=== PATIENT | male | born 1980 ===

== ENCOUNTER 2019-06-08 08:45 | Observation (INO) | payer SELFPAY ==
[~2019-06-08] VITALS: Ht 157.5 cm; Wt 78.5 kg
[2019-06-08] MEDS ORDERED: NS IV 500 ML 500 ML IV ONE (09:03)
[2019-06-08] MEDS ORDERED: NS IV 1000 ML 1,000 ML IV SCH (09:03)
[2019-06-08] MEDS ORDERED: KETOROLAC 30 MG/ML VIAL IVP ONE (09:15)
[2019-06-08] MEDS ORDERED: IOHEXOL 350 MG/ML 100 ML (OMNIPAQUE 350) VIAL IV ONE (09:15)
[2019-06-08] MEDS ORDERED: NS 100 ML (IVPB) BAG IV ONE (09:15)
[2019-06-08] MEDS ORDERED: HOLD METFORMIN - RECEIVED CONTRAST 20 ML VIAL IV SCH (09:15)
[2019-06-08] MEDS ORDERED: ONDANSETRON 4 MG/2 ML (SDV) Z0FRAN IVP ONE (09:15)
--- NOTE | 2019-06-08 09:17 | ED Abdominal Pain ---
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 Technical Communicator line was used.) History of Present Illness Date Seen by Provider: Jun 08, 2019 Time Seen by Provider: 08:45 Initial Comments Patient resents to ER by EMS from his work at [employer] with chief complaint that about an hour prior to arrival he had a sudden onset of sharp, severe, debilitating left upper quadrant abdominal pain. For the last 4 days she's been having some off-again on-again nausea without vomiting. He's having nausea now. His work partner who accompanies him states that he did not pass out nor hit his head. He nearly was having severe pain so they sat him down. He had an appointment at 1:15 to see the company doctor however because his symptoms were worsening he could not make it to that appointment so they called EMS. He does have a history of diabetes on metformin and also takes a stomach pill similar to pantoprazole. He's had no abdominal surgeries or trauma. No sore throat fevers or chills. No cough shortness of breath or chest pain. No dysuria or hematuria. No history of kidney stones. Allergies and Home Medications Allergies Coded Allergies: No Known Drug Allergies (Unverified , 06/08/19) Patient Home Medication List Home Medication List Reviewed: Yes Review of Systems Review of Systems Constitutional: No chills, No diaphoresis, No fever, No malaise EENTM: No Blurred Vision, No Double Vision Respiratory: Denies Cough, Denies Orthopnea Cardiovascular: Denies Chest Pain, Denies Edema Gastrointestinal: See HPI, Abdominal Pain; Denies Constipated, Denies Diarrhea; Nausea; Denies Poor Fluid Intake, Denies Vomiting Genitourinary: Denies Burning, Denies Discharge Musculoskeletal: No back pain, No joint pain Skin: No pruritus, No rash Psychiatric/Neurological: Denies Headache, Denies Numbness All Other Systems Reviewed Negative Unless Noted: Yes Past Cuuxglo-Lzqmbr-Koslfp Hx Patient Social History Alcohol Use: Denies Use Recreational Drug Use: No Smoking Status: Never a Smoker Physical Exam Vital Signs Vital Signs - First Documented 06/08/19 08:45 Temp 36.8 Pulse 93 Resp 18 B/P (MAP) 158/103 (121) Pulse Ox 100 O2 Delivery Room Air Capillary Refill : Height/Weight/BMI Height: '" Weight: lbs. oz. kg; BMI Method: General Appearance: WD/WN, moderate distress HEENT: PERRL/EOMI, pharynx normal Neck: non-tender, full range of motion Respiratory: lungs clear, normal breath sounds, no respiratory distress, no accessory muscle use Cardiovascular: normal peripheral pulses, regular rate, rhythm, no edema Peripheral Pulses: 2+ Radial Pulses (R), 2+ Radial Pulses (L) Gastrointestinal: normal bowel sounds, no organomegaly, tenderness (Tenderness in all 4 quadrants without Rovsing sign or psoas signs but worse in his left upper quadrant without splenomegaly.) Extremities: normal range of motion, non-tender, normal inspection, no pedal edema, normal capillary refill Neurologic/Psychiatric: alert, normal mood/affect, oriented x 3 Skin: normal color, warm/dry Progress/Results/Core Measures Results/Orders Lab Results Laboratory Tests Test 06/08/19 09:14 06/08/19 11:02 Range/Units White Blood Count 9.2 4.3-11.0 10^3/uL Red Blood Count 4.79 4.35-5.85 10^6/uL Hemoglobin 13.8 13.3-17.7 G/DL Hematocrit 39 L 40-54 % Mean Corpuscular Volume 81 80-99 FL Mean Corpuscular Hemoglobin 29 25-34 PG Mean Corpuscular Hemoglobin Concent 36 32-36 G/DL Red Cell Distribution Width 12.7 10.0-14.5 % Platelet Count 254 130-400 10^3/uL Mean Platelet Volume 10.5 H 7.4-10.4 FL Neutrophils (%) (Auto) 64 42-75 % Lymphocytes (%) (Auto) 25 12-44 % Monocytes (%) (Auto) 6 0-12 % Eosinophils (%) (Auto) 5 0-10 % Basophils (%) (Auto) 1 0-10 % Neutrophils # (Auto) 5.9 1.8-7.8 X 10^3 Lymphocytes # (Auto) 2.3 1.0-4.0 X 10^3 Monocytes # (Auto) 0.5 0.0-1.0 X 10^3 Eosinophils # (Auto) 0.4 H 0.0-0.3 10^3/uL Basophils # (Auto) 0.1 0.0-0.1 10^3/uL Sodium Level 135 135-145 MMOL/L Potassium Level 3.7 3.6-5.0 MMOL/L Chloride Level 105 98-107 MMOL/L Carbon Dioxide Level 19 L 21-32 MMOL/L Anion Gap 11 5-14 MMOL/L Blood Urea Nitrogen 28 H 7-18 MG/DL Creatinine 1.33 H 0.60-1.30 MG/DL Estimat Glomerular Filtration Rate 60 BUN/Creatinine Ratio 21 Glucose Level 262 H 70-105 MG/DL Calcium Level 9.1 8.5-10.1 MG/DL Corrected Calcium 9.2 8.5-10.1 MG/DL Total Bilirubin 0.5 0.1-1.0 MG/DL Aspartate Amino Transf (AST/SGOT) 15 5-34 U/L Alanine Aminotransferase (ALT/SGPT) 14 0-55 U/L Alkaline Phosphatase 119 40-136 U/L C-Reactive Protein High Sensitivity 0.07 0.00-0.50 MG/DL Total Protein 6.9 6.4-8.2 GM/DL Albumin 3.9 3.2-4.5 GM/DL Lipase 17 8-78 U/L Monoscreen NEGATIVE NEGATIVE Urine Color YELLOW Urine Clarity CLEAR Urine pH 6.5 5-9 Urine Specific [place] 1.010 L 1.016-1.022 Urine Protein 1+ H NEGATIVE Urine Glucose (UA) 2+ H NEGATIVE Urine Ketones NEGATIVE NEGATIVE Urine Nitrite NEGATIVE NEGATIVE Urine Bilirubin NEGATIVE NEGATIVE Urine Urobilinogen 0.2 < = 1.0 MG/DL Urine Leukocyte Esterase NEGATIVE NEGATIVE Urine RBC (Auto) 3+ H NEGATIVE Urine RBC 10-25 H /HPF Urine WBC NONE /HPF Urine Squamous Epithelial Cells RARE /HPF Urine Crystals NONE /LPF Urine Bacteria NEGATIVE /HPF Urine Casts NONE /LPF Urine Mucus NEGATIVE /LPF Urine Culture Indicated NO My Orders Orders - FELIPA CASTANEDA Ed Iv/Invasive Line Start (06/08/19 09:03) Ns Iv 500 Ml (Sodium Chloride 0.9%) (06/08/19 09:03) Ns Iv 1000 Ml (Sodium Chloride 0.9%) (06/08/19 09:03) Cbc With Automated Diff (06/08/19 09:03) Comprehensive Metabolic Panel (06/08/19 09:03) Hs C Reactive Protein (06/08/19 09:03) Lipase (06/08/19 09:03) Monotest (06/08/19 09:03) Ua Culture If Indicated (06/08/19 09:03) Ketorolac Injection (Toradol Injection) (06/08/19 09:15) Ondansetron Injection (Zofran Injectio (06/08/19 09:15) Iohexol Injection (Omnipaque 350 Mg/Ml 1 (06/08/19 09:15) Received Contrast (Hold Metformin- Contr (06/08/19 09:15) Ns (Ivpb) (Sodium Chloride 0.9% Ivpb Bag (06/08/19 09:15) Pantoprazole Injection (Protonix Injecti (06/08/19 09:30) Blood Culture (06/08/19 09:19) Fentanyl Injection (Sublimaze Injection (06/08/19 11:00) Ct Abd/Pelvis Wo(Kidney Stone) (06/08/19 11:48) Fentanyl Injection (Sublimaze Injection (06/08/19 13:08) Medications Given in ED Current Medications Medications Dose Ordered Sig/Pavel Route Start Time Stop Time Status Last Admin Dose Admin Fentanyl Citrate 50 mcg ONCE ONCE IVP 06/08/19 11:00 06/08/19 11:01 DC 06/08/19 13:17 50 MCG Ketorolac Tromethamine 30 mg ONCE ONCE IVP 06/08/19 09:15 06/08/19 09:16 DC 06/08/19 09:29 30 MG Ondansetron HCl 4 mg ONCE ONCE IVP 06/08/19 09:15 06/08/19 09:16 DC 06/08/19 09:28 4 MG Pantoprazole 40 mg ONCE ONCE IV 06/08/19 09:30 06/08/19 09:31 DC 06/08/19 09:27 40 MG Sodium Chloride 500 ml @ 0 mls/hr Q0M ONCE IV 06/08/19 09:03 06/08/19 09:09 DC 06/08/19 10:10 500 MLS/HR Vital Signs/I&O 06/08/19 08:45 Temp 36.8 Pulse 93 Resp 18 B/P (MAP) 158/103 (121) Pulse Ox 100 O2 Delivery Room Air Progress Progress Note #1: Time: 09:18 Progress Note Heart rate was in the 90s on hesitation either from pain or if he has an elevated white count we would do a complete septic workup. Plan to get blood cultures labs urinalysis. We'll give him 30 mg of Toradol and 4 mg of Zofran for his symptoms. 1500 cc would be 20 mL/kg based on his stated weight of 72 kg. Suspect kidney stone versus less likely mono versus colitis versus less likely appendicitis versus PUD etc. Plan given pantoprazole. Progress Note #2: Time: 10:48 Progress Note Patient states his pain was significantly improved with the Toradol. He was not able to produce a urine sample earlier however he thinks he can now. He says his pain is starting to come back so were going to augment him with 50 g of fentanyl. Blood work so far unremarkable except for his history of diabetes and some mild kidney dysfunction that may be chronic. Progress Note #3: Time: 13:08 Progress Note Patient's still visibly uncomfortable, writhing on the bed. Plan to do an observation stay with surgical consult for intractable abdominal pain, pain medicines and nausea medicines. Diagnostic Imaging Diagonstic Imaging: CT (without IV contrast) Plain Films/CT/US/NM/MRI: abdomen, pelvis Comments NAME: NIYAH GOLD [facility] REC#: [id number] PT STATUS: REG ER : 1980 PHYSICIAN: FELIPA CASTANEDA MD ADMIT DATE: 06/08/19/ER Draft Date of Exam:06/08/19 CT ABD/PELVIS WO(KIDNEY STONE) PROCEDURE: CT urinary tract, rule out kidney stone. TECHNIQUE: Multiple contiguous axial images were obtained through the abdomen and pelvis without the use of intravenous contrast. Auto Exposure Controls were utilized during the CT exam to meet ALARA standards for radiation dose reduction. INDICATION: Left flank pain Tiny basilar nodule seen in the right base. This may be calcified and is most suggestive of granuloma. There is also mild hiatal hernia. Unenhanced images of the liver and spleen reveal no focal lesion. No gallbladder, pancreatic or adrenal gland abnormality is seen. There is no renal calculus or significant hydronephrosis. There is no definite ureteric stone. There is no evidence of appendiceal inflammation. There is slight increased density in the peritoneal fat of the right pelvis surrounding the appendix of uncertain significance. No organized fluid collection is identified. There is no evidence of bladder stone. IMPRESSION: No evidence of urinary tract calculus or obstruction. There is mild hiatal hernia and probable punctate calcified granuloma in the right lower lobe. Slight asymmetric increased density is noted in the right pelvic peritoneal fat. This could be related to epiploic appendagitis or nonspecific panniculitis. Dictated on workstation # [id number] Dict: 06/08/19 1209 Trans: 06/08/19 1216 [facility] [id number] Interpreted by: MOLLY HARRISON MD Electronically signed by: Reviewed: Reviewed by Me Departure Communication (Admissions) Time/Spoke to Admitting Phy: 13:05 Discussed the case with Dr. Jay and he agrees to admit the patient for intractable pain with consult surgery. No IV antibiotics. Time/Spoke to Consulting Phy: 13:10 Discussed the case with Dr. Deshpande, general surgery and he agrees to consult case. Impression Primary Impression: Intractable abdominal pain Additional Impression: Epiploic appendagitis Disposition: ADMITTED INPATIENT Condition: Stable Admissions Decision to Admit Reason: Admit from ER (General) Decision to Admit/Date: Jun 08, 2019 Time/Decision to Admit Time: 13:00 Departure-Patient Inst. Work/School Note: Family Work Note, Patient Received Medical Care In the Emergency Department On: Jun 08, 2019 Patient Will Be Able to Return to Work/School On: Jun 09, 2019 Patient Restrictions: none Work Release Form Date Seen in the Emergency Department: Jun 08, 2019 Return to Work: Jun 10, 2019 Restrictions: No Restrictions FELIPA CASTANDEA Jun 08, 2019 09:17
[2019-06-08 09:22] LABS: BASOPHILS # (AUTO) 0.1 10^3/uL (0.0-0.1); BASOPHILS % (AUTO) 1 % (0-10); EOSINOPHILS # (AUTO) 0.4 10^3/uL (0.0-0.3); EOSINOPHILS % (AUTO) 5 % (0-10); HEMATOCRIT 39 % (40-54); HEMOGLOBIN 13.8 G/DL (13.3-17.7); LYMPHOCYTES # (AUTO) 2.3 X 10^3 (1.0-4.0); LYMPHOCYTES % (AUTO) 25 % (12-44); MEAN CORPUSCULAR HEMOGLOBIN 29 PG (25-34); MEAN CORPUSCULAR HGB CONC 36 G/DL (32-36); MEAN CORPUSCULAR VOLUME 81 FL (80-99); MEAN PLATELET VOLUME 10.5 FL (7.4-10.4); MONOCYTES # (AUTO) 0.5 X 10^3 (0.0-1.0); MONOCYTES % (AUTO) 6 % (0-12); NEUTROPHILS # (AUTO) 5.9 X 10^3 (1.8-7.8); NEUTROPHILS % (AUTO) 64 % (42-75); PLATELET COUNT 254 10^3/uL (130-400); RED CELL DISTRIBUTION WIDTH 12.7 % (10.0-14.5); WHITE BLOOD COUNT 9.2 10^3/uL (4.3-11.0)
[2019-06-08] MEDS ORDERED: PANTOPRAZOLE 40 MG (PROTONIX) VIAL IV ONE (09:30)
[2019-06-08 09:42] LABS: ALBUMIN 3.9 GM/DL (3.2-4.5); BILIRUBIN,TOTAL 0.5 MG/DL (0.1-1.0); CALCIUM 9.1 MG/DL (8.5-10.1); CREATININE SERUM 1.33 MG/DL (0.60-1.30); POTASSIUM 3.7 MMOL/L (3.6-5.0); TOTAL PROTEIN 6.9 GM/DL (6.4-8.2)
--- NOTE | 2019-06-08 10:00 | NUR ---
PATIENT REPORT THROUGH [employer] [facility] PAIN BETTER.
[2019-06-08] MEDS ORDERED: fentaNYL INJECTION 100 MCG/2 ML AMP IVP ONE (11:00)
[2019-06-08 11:09] LABS: BILIRUBIN,URINE NEGATIVE (NEGATIVE); CLARITY,URINE CLEAR; COLOR,URINE YELLOW; GLUCOSE, URINE (UA) 2+ (NEGATIVE); KETONES,URINE NEGATIVE (NEGATIVE); LEUKOCYTE ESTERASE ,URINE NEGATIVE (NEGATIVE); NITRITE,URINE NEGATIVE (NEGATIVE); PH,URINE 6.5 (5-9); PROTEIN,URINE 1+ (NEGATIVE)
[2019-06-08 11:45] LABS: BACTERIA,URINE NEGATIVE /HPF; SQUAMOUS EPITHELIAL CELL,UR RARE /HPF
--- NOTE | 2019-06-08 12:16 | Diagnostic Imaging Report ---
PROCEDURE: CT urinary tract, rule out kidney stone. TECHNIQUE: Multiple contiguous axial images were obtained through the abdomen and pelvis without the use of intravenous contrast. Auto Exposure Controls were utilized during the CT exam to meet ALARA standards for radiation dose reduction. INDICATION: Left flank pain Tiny basilar nodule seen in the right base. This may be calcified and is most suggestive of granuloma. There is also mild hiatal hernia. Unenhanced images of the liver and spleen reveal no focal lesion. No gallbladder, pancreatic or adrenal gland abnormality is seen. There is no renal calculus or significant hydronephrosis. There is no definite ureteric stone. There is no evidence of appendiceal inflammation. There is slight increased density in the peritoneal fat of the right pelvis surrounding the appendix of uncertain significance. No organized fluid collection is identified. There is no evidence of bladder stone. IMPRESSION: No evidence of urinary tract calculus or obstruction. There is mild hiatal hernia and probable punctate calcified granuloma in the right lower lobe. Slight asymmetric increased density is noted in the right pelvic peritoneal fat. This could be related to epiploic appendagitis or nonspecific panniculitis. Dictated by: Dictated on workstation # [id number]
[2019-06-08] MEDS ORDERED: fentaNYL INJECTION 100 MCG/2 ML AMP ONE (13:08)
--- NOTE | 2019-06-08 13:36 | NUR ---
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 NIYAH GOLD introduced to surroundings, call light, bed controls, phone, TV, temperature control, lights, meal times, smoking policy, visitor policy, side rail policy, bathrooms and showers. Patient Rights given to patient in the handbook. NIYAH GOLD verbalizes understanding that [facility] is not responsible for the loss or damage to any personal effects or valuables that are kept in the patients possession during their hospitalization. The following Patient Care Plans were discussed with the PATIENT: Discharge Planning, ABDOMINAL PAIN and KNOWLEDGE DEFICIT. NIYAH GOLD verbalizes understanding of Interdisciplinary Patient Education. Patient and/or family were informed about the Rapid Response Team and its purpose.
[2019-06-08] MEDS ORDERED: ONDANSETRON 4 MG/2 ML (SDV) Z0FRAN IVP PRN (14:00)
[2019-06-08] MEDS ORDERED: fentaNYL INJECTION 100 MCG/2 ML AMP IVP PRN (14:00)
[2019-06-08] MEDS ORDERED: KETOROLAC 15 MG/ML VIAL IVP PRN (14:00)
[2019-06-08 14:03] VITALS: BP 160/89
--- NOTE | 2019-06-08 14:20 | NUR ---
PATIENT'S HOME MEDICATION [facility] IS IN THE PROCESS ENGINEERING MANAGER HIS ROOM
[2019-06-08] MEDS ORDERED: FLU QUADRIvalent (5+ YOA) 2019-2020 (AFLURIA) 0.5 ML IM ONE (14:30)
[2019-06-08] MEDS: NS W/KCL 20 MEQ/L 1,000 ML IV SCH ×2 (14:50→22:45)
--- OUTSIDE RECORDS SUMMARY | 2019-06-08 16:04 | XMS REPORT | Continuity of Care Document ---
Demographics Preferred Language Unknown Marital Status Unknown Alevism Affiliation Unknown Race Unknown Ethnic Group Unknown Author Organization Unknown Address Unknown Phone Unavailable Allergies Active Description Code Type Severity Reaction Onset Reported/Identified Relationship to Patient Clinical Status Yes No Known Drug Allergies [id number] Drug Allergy Unknown N/A 06/08/2019 Medications There is no data. Problems There is no data. Procedures There is no data. Results There is no data. Encounters ACCT No. Visit Date/Time Discharge Status Pt. Type Provider Facility Loc./Unit Complaint [id number] 06/08/2019 10:38:00 Document Registration
[2019-06-08 16:11] VITALS: BP 152/97
[2019-06-08] MEDS: inSUlin ASPART (NovoLOG) 1 UNIT/0.01 ML (CHARGE PER UNIT) SC SCH ×2 (16:27→21:18)
--- NOTE | 2019-06-08 18:28 | CONSULTATION REPORT ---
DATE OF SERVICE: 06/08/2019 ADMITTING PRIMARY CARE PHYSICIAN: Dr. Jay. HISTORY OF PRESENT ILLNESS: The patient is a 38-year-old male who presented with abdominal pain, more in the left upper abdominal quadrant. He states that this started earlier this morning and never had this before. He does not report any episodes of nausea, no vomiting as well as no diarrhea, no constipation. States that he did have a bowel movement today. A CT scan was performed, which did not show any abnormalities. There was a slight thickening of the omentum, which may indicate mild omental appendicitis. Upon examination later today, he is asymptomatic, does not have any abdominal pain. He also feels very hungry and does not experiencing any fever, no chills. His laboratory work is normal with a white count of 9.2, hemoglobin 13.8. PAST MEDICAL HISTORY: Cuh-vpeoafq-riqtbywwv diabetes. PAST SURGICAL HISTORY: None. ALLERGIES: No known drug allergies. MEDICATIONS: Metformin 500 mg b.i.d. SOCIAL HISTORY: Negative smoke, negative alcohol. FAMILY HISTORY: Noncontributory. VITAL SIGNS: Temperature 36.4, blood pressure 152/97, pulse 80, respirations 18, pulse ox 99% on room air. REVIEW OF SYSTEMS: Well-nourished male in no acute distress. He is not experiencing any shortness of breath or difficulty breathing. No chest pain, palpitations, diaphoresis. No nausea, vomiting. No diarrhea or constipation. No fever, chills, no recent inadvertent weight loss. All other review of systems negative. ASSESSMENT AND PLAN: A 38-year-old male with left upper abdominal quadrant pain, which may indicate some level of stress-induced gastritis versus a viral gastritis. CT scan findings also did show mild inflammation of the omentum, which may indicate some level of torsion of the omentum; however, at this time, his abdomen is completely asymptomatic with no peritoneal signs or any masses. He is also very hungry and does not have any pain and we will advance his diet to a regular diet, and if he is able to tolerate this and his vital signs remained stable, he will be discharged home. Job ID: [id number] DocumentID: [id number] Dictated Date: 06/08/2019 18:08:51 Acid Wash Operator Date: 06/08/2019 18:28:02 Dictated By: AARON LINDSAY MD
[2019-06-08] MEDS ORDERED: diphenhydrAMINE 25 MG TAB (BENADRYL) PO PRN (18:30)
[2019-06-08] MEDS ORDERED: BISACODYL 10 MG SUPP (DULCOLAX) PR PRN (18:30)
[2019-06-08] MEDS ORDERED: MELATONIN 3 MG TABLET PO PRN (18:30)
[2019-06-08] MEDS ORDERED: ACETAMINOPHEN 325 MG TABLET PO PRN (18:30)
[2019-06-08] MEDS ORDERED: ANTACID SUSP 30 ML UDC (MYLANTA) PO PRN (18:30)
[2019-06-08] MEDS ORDERED: ZOLPIDEM 5 MG (AMBIEN) TAB PO PRN (18:30)
[2019-06-08] MEDS ORDERED: polyethylene glycoL POWDER 17 GM (MIRALAX) PACK PO PRN (18:30)
[2019-06-08 20:20] VITALS: BP 168/103
[2019-06-08 21:30] VITALS: BP 146/90
[2019-06-09 00:12] VITALS: BP 150/83
[2019-06-09 04:52] VITALS: BP 166/94
[2019-06-09 05:24] LABS: BASOPHILS # (AUTO) 0.1 10^3/uL (0.0-0.1); BASOPHILS % (AUTO) 1 % (0-10); EOSINOPHILS # (AUTO) 0.7 10^3/uL (0.0-0.3); EOSINOPHILS % (AUTO) 7 % (0-10); HEMATOCRIT 37 % (40-54); HEMOGLOBIN 12.6 G/DL (13.3-17.7); LYMPHOCYTES # (AUTO) 2.5 X 10^3 (1.0-4.0); LYMPHOCYTES % (AUTO) 25 % (12-44); MEAN CORPUSCULAR HEMOGLOBIN 29 PG (25-34); MEAN CORPUSCULAR HGB CONC 34 G/DL (32-36); MEAN CORPUSCULAR VOLUME 85 FL (80-99); MEAN PLATELET VOLUME 10.3 FL (7.4-10.4); MONOCYTES # (AUTO) 0.6 X 10^3 (0.0-1.0); MONOCYTES % (AUTO) 6 % (0-12); NEUTROPHILS # (AUTO) 6.2 X 10^3 (1.8-7.8); NEUTROPHILS % (AUTO) 61 % (42-75); PLATELET COUNT 246 10^3/uL (130-400); RED CELL DISTRIBUTION WIDTH 12.9 % (10.0-14.5); WHITE BLOOD COUNT 10.1 10^3/uL (4.3-11.0)
[2019-06-09 05:46] LABS: CALCIUM 8.1 MG/DL (8.5-10.1); CREATININE SERUM 1.39 MG/DL (0.60-1.30); POTASSIUM 4.5 MMOL/L (3.6-5.0)
[2019-06-09] MEDS: NS W/KCL 20 MEQ/L 1,000 ML IV SCH (05:46)
[2019-06-09] MEDS: inSUlin ASPART (NovoLOG) 1 UNIT/0.01 ML (CHARGE PER UNIT) SC SCH (05:59)
[2019-06-09 08:00] VITALS: BP 137/89
[2019-06-09] MEDS ORDERED: OXC5T PO (08:49)
--- NOTE | 2019-06-09 09:39 | Discharge Summary ---
Discharge Summary Hospital Course Was the Problem List Reviewed?: Yes Problems/Dx: (1) Intractable abdominal pain Status: Acute Hospital Course Date of Admission: Jun 08, 2019 at 13:18 Admission Diagnosis : Intractable abdominal pain Family Physician/Provider: No,Local Physician Date of Discharge: 06/09/19 Discharge Diagnosis: Intractable abdominal pain Hospital Course: Kilo Blum is a 38-year-old male who presented with intractable abdominal pain. The workup revealed microscopic hematuria. His CT scan did not show any signs of kidney stone, appendicitis, or other intra-abdominal abnormalities. He was admitted for pain control. His pain resolved. He was able to tolerate a normal diet without worsening pain. He was evaluated by surgery with concerns for a possible developing appendicitis. With his resolved pain and ability to tolerate a diet he was cleared for discharge by surgery. He should follow-up with his primary care physician. Labs and Pending Lab Test: Laboratory Tests 06/08/19 11:02: Urine Color YELLOW, Urine Clarity CLEAR, Urine pH 6.5, Urine Specific [place] 1.010L, Urine Protein 1+H, Urine Glucose (UA) 2+H, Urine Ketones NEGATIVE, Urine Nitrite NEGATIVE, Urine Bilirubin NEGATIVE, Urine Urobilinogen 0.2, Urine Leukocyte Esterase NEGATIVE, Urine RBC (Auto) 3+H, Urine RBC 10-25H, Urine WBC NONE, Urine Squamous Epithelial Cells RARE, Urine Crystals NONE, Urine Bacteria NEGATIVE, Urine Casts NONE, Urine Mucus NEGATIVE, Urine Culture Indicated NO 06/08/19 15:57: Glucometer 224H 06/08/19 20:04: Glucometer 277H 06/09/19 04:48: White Blood Count 10.1, Red Blood Count 4.34L, Hemoglobin 12.6L, Hematocrit 37L, Mean Corpuscular Volume 85, Mean Corpuscular Hemoglobin 29, Mean Corpuscular Hemoglobin Concent 34, Red Cell Distribution Width 12.9, Platelet Count 246, Mean Platelet Volume 10.3, Neutrophils (%) (Auto) 61, Lymphocytes (%) (Auto) 25, Monocytes (%) (Auto) 6, Eosinophils (%) (Auto) 7, Basophils (%) (Auto) 1, Neutrophils # (Auto) 6.2, Lymphocytes # (Auto) 2.5, Monocytes # (Auto) 0.6, Eosinophils # (Auto) 0.7H, Basophils # (Auto) 0.1, Sodium Level 136, Potassium Level 4.5, Chloride Level 107, Carbon Dioxide Level 18L, Anion Gap 11, Blood Urea Nitrogen 25H, Creatinine 1.39H, Estimat Glomerular Filtration Rate 57, BUN/Creatinine Ratio 18, Glucose Level 260H, Mean Blood Glucose [Pending], Hemoglobin A1c [Pending], Calcium Level 8.1L Home Meds Active Oxycodone IR (Oxycodone HCl) 5 Mg Tab 5 Mg PO Q4H PRN 5 Days Assessment/Pt Instructions Take medications as prescribed. Follow-up with your primary care physician. Return with worsening symptoms. Discharge Planning: <30 minutes discharge planning Discharge Instructions Discharge Diet: No Restrictions Activity as Tolerated: Yes Pneumonia Vaccine Order Indica: Yes Discharge Physical Examination Vital Signs Vital Signs Date Time Temp Pulse Resp B/P (MAP) Pulse Ox O2 Delivery O2 Flow Rate FiO2 06/09/19 08:00 36.7 94 20 137/89 (105) 98 Room Air General Appearance: No Apparent Distress, WD/WN Respiratory: Lungs Clear, Normal Breath Sounds, No Respiratory Distress Cardiovascular: Regular Rate, Rhythm, No Edema, No Murmur Gastrointestinal: Normal Bowel Sounds, Non Tender, Soft Extremity: Normal Inspection, Non Tender, No Pedal Edema Skin: Normal Color, Warm/Dry Neurologic/Psychiatric: Alert, Oriented x3, No Motor/Sensory Deficits, Normal Mood/Affect Allergies: Coded Allergies: No Known Drug Allergies (Unverified , 06/08/19) Discharge Summary Date of Admission Jun 08, 2019 at 13:18 Date of Discharge Discharge Date: Jun 09, 2019 Discharge Time: 09:38 Admission Diagnosis Intractable abdominal pain Consults/Procedures Consulations General surgery Discharge Diagnosis (1) Intractable abdominal pain Status: Acute Clinical Quality Measures DVT/VTE Risk/Contraindication: RFS Level Per Nursing on Admit: 0=No Risk/No VTE PPX JOAN BAINS MD Jun 09, 2019 09:39
[2019-06-09 11:10] VITALS: BP 137/89
--- NOTE | 2019-06-09 11:10 | NUR ---
NIYAH GOLD demonstrates understanding of discharge instructions and accurately returns instructions upon questioning. Copy of Post-Discharge Instructions given to PT AND CALLED LANGUAGE LINE FOR TRANSLATION OF DISCHARGE. ALSO ASKED PT IF ANY QUESTIONS OR CONCERNS PER LANGUAGE LINE. INSTRUCTED PT. TO CALL DR. LINDSAY NEEDED FOR ABD. PAIN. INSTRUCTED PT ON THE NEED FOR A PCP TO CONT. HEALTH CARE. NIYAH GOLD is able to manage continuing needs after discharge. Patients belongings returned to PT. Patient discharged from [facility] on 06/09/19 at 11:10. NIYAH GOLD left floor via AMB, accompanied by STAFF AND .
== END 2019-06-09 11:10 | disposition home or self-care (01) ==
LOC: ER 08:47 → EDBD 08:47 → 4TH 13:18
PROVIDERS: ADMIT Internal Medicine; ATTEND Internal Medicine
DX: R10.9 Unspecified abdominal pain (principal); K63.89 Other specified diseases of intestine; R55 Syncope and collapse; Z79.891 Long term (current) use of opiate analgesic
CPT/HCPCS: 36415; 74176; 80048; 80053; 81000; 82962; 83036; 83690; 85025; 86141; 86308; 87040; G0378